=== PATIENT | male | born 1975 | race Caucasian/White ===

== ENCOUNTER 2025-01-24 09:15 | Emergency (ER) | payer BC ==
[~2025-01-24] VITALS: Ht 167.6 cm; Wt 61.2 kg
[2025-01-24] MEDS ORDERED: ATOR20TA PO (09:43)
[2025-01-24] MEDS: IV NORMAL SALINE 1000 ML BAG IV ONE (10:15)
[2025-01-24] MEDS ORDERED: methylPREDNISolone SOD SUCC 125 MG/2 ML VIAL ONE (10:17)
[2025-01-24] MEDS ORDERED: diphenhydrAMINE 50 MG/1 ML VIAL ONE (10:17)
[2025-01-24] MEDS ORDERED: ONDANSETRON 4 MG/2 ML VIAL ONE (10:17)
[2025-01-24] MEDS ORDERED: FAMOTIDINE. 20 MG/2 ML VIAL IV ONE (10:18)
[2025-01-24] MEDS: diphenhydrAMINE 50 MG/1 ML VIAL IV ONE (10:23)
[2025-01-24] MEDS: ONDANSETRON 4 MG/2 ML VIAL IV ONE (10:23)
[2025-01-24] MEDS: methylPREDNISolone SOD SUCC 125 MG/2 ML VIAL IV ONE (10:24)
[2025-01-24] MEDS: FAMOTIDINE. 20 MG/2 ML VIAL IV ONE (10:24)
[2025-01-24] MEDS ORDERED: FAMO-132 PO (11:33)
[2025-01-24] MEDS ORDERED: DIPH25CA83 PO (11:33)
[2025-01-24] MEDS ORDERED: PRED20TA PO (11:33)
[2025-01-24] MEDS ORDERED: CEPH500C2 PO (11:33)
[2025-01-24 12:13] VITALS: BP 112/72; TEMP 98.6; O2SAT 100
== END 2025-01-24 11:50 | disposition home or self-care (01) ==
LOC: ER 09:15
DX: S80.861A Insect bite (nonvenomous), right lower leg, initial encounter (principal); R11.0 Nausea; E78.5 Hyperlipidemia, unspecified; R20.2 Paresthesia of skin; Z79.52 Long term (current) use of systemic steroids; Z79.899 Other long term (current) drug therapy; Z88.7 Allergy status to serum and vaccine; W57.XXXA Bitten or stung by nonvenomous insect and other nonvenomous arthropods, initial encounter; Y93.89 Activity, other specified; Y92.89 Other specified places as the place of occurrence of the external cause; Y99.8 Other external cause status
CPT/HCPCS: 99284; 96374; 96375; 96361; J2919; J1200; J1308; J2405; J7040; A4606; A4663